=== PATIENT | female | born 1990 | race Caucasian/White ===

== ENCOUNTER 2016-11-15 07:17 | Emergency (ER) | payer BC, OTHER ==
[2016-11-15 07:29] VITALS: BP 155/104
[2016-11-15] MEDS ORDERED: Tenofovir/Emtricitabine(*) TAB PO ONE (09:12)
[2016-11-15] MEDS ORDERED: Raltegravir* 400 MG TAB PO ONE (09:16)
[2016-11-15] MEDS ORDERED: Cephalexin CAP* 500 MG PO ONE (09:29)
[2016-11-15 12:33] LABS: Hematocrit 42 % (35-47); Hemoglobin 13.7 g/dl (12.0-16.0); Mean Corpuscular HGB Conc 33 g/dl (31-36); Mean Corpuscular Hemoglobin 28 pg (27-31); Mean Corpuscular Volume 85 fL (80-97); Mean Platelet Volume 8 um3 (7.4-10.4); Red Blood Count 4.94 10^6/ul (4.0-5.4); Red Cell Distribution Width 13 % (10.5-15); White Blood Count 10.1 10^3/ul (3.5-10.8)
[2016-11-15 13:05] LABS: Albumin 4.3 g/dL (3.2-5.2); BUN/Creatinine Ratio 10.8 (8-20); EGFR African American 108.6 (>60); EGFR Non-African American 84.5 (>60); Globulin 3.1 g/dL (2-4); Potassium 4.3 mmol/L (3.5-5.0); Total Bilirubin 0.3 mg/dL (0.2-1.0); Total Protein 7.4 g/dL (6.4-8.9)
[2016-11-16 08:42] LABS: Rapid HIV INT CONT QC Line Present; Rapid HIV Kit Lot# F209005
[2016-11-16 08:43] LABS: Manual Entry Verification BM
--- NOTE | 2016-11-27 22:45 | UC ---
Jose Mckenna,Lisa, scribed for Jodie Hernandez DO on 11/15/16 at 0811 . Skin Complaint HPI - HPI Summary HPI Summary: This 26 y/o female presents to ED for a needle stick that occurred in [facility] at 0707 AM this morning. She was injecting [facility] pt with lidocaine when she was pricked herself with the used needle in her LUE #5 digit. The hepatitis or HIV status of the [facility] patient is unknown at this time as the surgeon refused to obtain consent from the source patient prior to surgery. PMHx includes Crohn's. She is UTD with tetanus. Nonsmoker. FHx is positive for HTN. - History of Current Complaint Chief Complaint: UCGeneralIllness Time Seen by Provider: 11/15/16 07:31 Stated Complaint: NEEDLE STICK Hx Obtained From: Patient Hx Last Menstrual Period: 11/08/16 ?: No Onset/Duration: Sudden Onset Timing: Constant Onset Severity: Mild Current Severity: Mild Location: Other - LUE #5 digit Aggravating: Nothing Alleviating: Nothing Associated Signs & Symptoms: Positive: Negative - Allergy/Home Medications Allergies/Adverse Reactions: Allergies Allergy/AdvReac Type Severity Reaction Status Date / Time No Known Allergies Allergy Verified 11/15/16 07:30 Review of Systems Constitutional: Negative Skin: Other - needlestick at LUE #5 digit Eyes: Negative ENT: Negative Respiratory: Negative Cardiovascular: Negative Gastrointestinal: Negative Genitourinary: Negative Motor: Negative Neurovascular: Negative Musculoskeletal: Negative Neurological: Negative Psychological: Negative All Other Systems Reviewed And Are Negative: Yes PMH/Surg Hx/FS Hx/Imm Hx Endocrine History Of: Denies: Diabetes, Thyroid Disease Cardiovascular History Of: Denies: Cardiac Disorders, Hypertension Respiratory History Of: Denies: COPD, Asthma GI/ History Of: Denies: Ulcer - Surgical History Surgical History: Yes Surgery Procedure, Year, and Place: eye surgery age 4 - Family History Known Family History: Positive: Hypertension - Social History Occupation: Employed Full-time Alcohol Use: Occasionally Substance Use Type: None Smoking Status (MU): Never Smoked Tobacco - Immunization History Most Recent Influenza Vaccination: 2016 Most Recent Tetanus Shot: UTD Physical Exam Triage Information Reviewed: Yes Appearance: Well-Appearing, No Pain Distress, Well-Nourished Vital Signs: Initial Vital Signs Temp 98.9 F 11/15/16 07:24 Pulse 112 11/15/16 07:24 Resp 20 11/15/16 07:24 BP 155/104 11/15/16 07:24 Pulse Ox 100 11/15/16 07:24 Vital Signs Reviewed: Yes Eyes: Positive: Conjunctiva Clear. Negative: Discharge ENT: Positive: Hearing grossly normal Neck exam: Normal Neck: Positive: Supple Respiratory: Positive: Normal breath sounds, No respiratory distress, No accessory muscle use Cardiovascular: Positive: RRR, No Murmur Musculoskeletal Exam: Normal, Other - of note needle stick is right on joint line of pip Neurological: Positive: Alert, Muscle Tone Normal Psychological: Positive: Normal Response To Family, Age Appropriate Behavior Skin Exam: Normal, Other - Warm, dry, color nml Skin: Positive: Other - Puncture wound at LUE #5 digit PIP, lateral PIP Re-Evaluation - Re-Evaluation First Eval Re-Evaluation Time: 08:59 Change: Unchanged Comment: Dr. Hernandez in room to update pt on plan of care. Course/Dx - Course Course Of Treatment: keflex rx pplx for joint infection as injury is right on lateral joint line - Diagnoses Provider Diagnoses: needle stick Discharge - Discharge Plan Condition: Stable Disposition: HOME Prescriptions: Cephalexin CAP* [Keflex CAP*] 500 mg PO BID #19 cap Cephalexin CAP* [Keflex CAP*] 500 mg PO BID #19 cap Raltegravir* [Isentress*] 400 mg PO BID #61 tab Tenofovir/Emtricitabine(*) [Truvada*] 1 tab PO DAILY #30 tab Patient Education Materials: Emtricitabine/Tenofovir (By mouth), Raltegravir ( By mouth), Needle Stick Injuries (ED) Referrals: Santos ROLLE,Delta Byrne [Family Provider] - As Soon As Possible No Primary Care Phys,NOPCP [Medical Doctor] - Additional Instructions: CEPHALEXIN: The antibiotic you've been prescribed is a member of the cephalosporin class. This type of antibiotic covers a wide variety of infections, including those of the skin, lungs, and urinary tract. It's useful for staph infections. This antibiotic is slightly similar to the penicillin family. In rare cases , a person who is allergic to penicillin will also be allergic to this medication. If you have had a severe allergic reaction to penicillin, and have not taken this antibiotic since that time, notify your doctor. Antibiotics which cover many germs ("broad spectrum" antibiotics) are more likely to cause diarrhea or "yeast" infections. Women prone to vaginal yeast problems may suffer an attack after taking this antibiotic. In infants, oral thrush (white spots "stuck" on the cheek) or yeast diaper rash may result. See your doctor if these problems occur. Call at once if you develop itching, hives , shortness of breath, or lightheadedness. ANY TIME YOU TAKE AN ANTIBIOTIC, IT IS IMPORTANT TO REPLENISH THE BODY'S BALANCE OF "GOOD" BACTERIA BY EATING HIGH QUALITY CULTURED FOOD SUCH YOGURT, SAURKRAUT OR KEVIN CHI AND/OR TAKING A PROBIOTIC SUPPLEMENT. The documentation as recorded by the Jose camarena Soohyun accurately reflects the service I personally performed and the decisions made by , Jodie Hernandez DO.
== END 2016-11-15 10:04 | disposition home or self-care (01) ==
LOC: UCEAST 07:17
DX: S61.237A Puncture wound without foreign body of left little finger without damage to nail, initial encounter (principal); W46.1XXA Contact with contaminated hypodermic needle, initial encounter; Y93.89 Activity, other specified; Y92.530 Ambulatory surgery center as the place of occurrence of the external cause; Y99.0 Civilian activity done for income or pay; Z32.02 Encounter for pregnancy test, result negative; Z11.4 Encounter for screening for human immunodeficiency virus [HIV]
CPT/HCPCS: 36415; 80053; 81025; 85025; 86703; 86706; 86803; 87340; 99212; A9270-GY; G0463